=== PATIENT | female | born 1945 | race Caucasian/White ===

== ENCOUNTER 2022-05-04 15:43 | Outpatient (CLI) | payer MEDICARE, OTHER, SELFPAY ==
--- NOTE | ~2022-05-04 | CT_ITS ---
EXAMINATION: CT lung screening DATE: 05/04/2022 16:11 INDICATION: Lung cancer screening. History of tobacco dependence. TECHNIQUE: Computed tomography (CT) of the chest was performed without intravenous contrast. The dose -length product was 73.14 mGy-cm. COMPARISON: None FINDINGS: No significant pleural or pericardial effusions. No thoracic lymphadenopathy. There is athe rosclerosis of the aorta and coronary arteries. Heart size is normal. There is emphysema. No endobron chial lesions. There are a few small 1-2 mm nodules which are not clearly calcified. No focal airspac e consolidation. No pneumothorax. There is dependent atelectasis. There are mild wedge compression de formities of the lower thoracic spine, likely chronic. IMPRESSION: 1. Lung-RADS category 2: Benign appearance or behavior. Continue annual screening with noncontrast lo w-dose chest CT in 12 months. Reviewed, dictated and finalized at location B. IMPRESSION: 1. Lung-RADS category 2: Benign appearance or behavior. Continue annual screeni ng with noncontrast low-dose chest CT in 12 months.
== END 2022-05-04 15:44 | disposition home or self-care (01) ==
PROVIDERS: PCP Family Medicine; Visit Provider Physician Assistant
DX: Z12.2 Encounter for screening for malignant neoplasm of respiratory organs (principal); Z87.891 Personal history of nicotine dependence
CPT/HCPCS: 71271

== ENCOUNTER 2022-05-25 08:07 | Outpatient (CLI) | payer MEDICARE, OTHER, SELFPAY ==
--- NOTE | ~2022-05-25 | XR_ITS ---
EXAMINATION: XR abdomen obstructive series DATE: 05/25/2022 08:40 INDICATION: Left upper quadrant pain TECHNIQUE: Upright and supine views of the abdomen were obtained. COMPARISON: None. FINDINGS: A large volume of colonic stool is present. The visualized lung bases are clear. The bowel gas pattern is normal. There is moderate osteoarthritis of the hips. Calcified atherosclerosis is not ed. There is dextrocurvature of the lumbar spine. IMPRESSION: 1. Constipation. Reviewed, dictated and finalized at location B. IMPRESSION: 1. Constipation.
== END 2022-05-25 08:08 | disposition home or self-care (01) ==
PROVIDERS: PCP Family Medicine; Visit Provider Family Medicine
DX: R10.12 Left upper quadrant pain (principal); K59.00 Constipation, unspecified
CPT/HCPCS: 74019

== ENCOUNTER 2023-05-05 12:36 | Outpatient (CLI) | payer MEDICARE, SELFPAY ==
--- NOTE | ~2023-05-05 | CT_ITS ---
EXAMINATION: CT lung screening DATE: 05/05/2023 13:11 INDICATION: Personal history of nicotine dependence, prior smoker with 50 pack year history TECHNIQUE: Computed tomography (CT) of the chest was performed without intravenous contrast. The dose -length product (DLP) was 81.83 mGy-cm. Automated exposure control and iterative reconstruction techn ique were employed. COMPARISON: 05/04/2022 FINDINGS: There is moderate to severe emphysema. Again seen are scattered, stable 1 to 2 mm pulmonary nodules. There is mild atelectasis of the lower lobes. No pleural effusion or pneumothorax. No patho logically enlarged thoracic lymph nodes are identified. The heart size is normal. There is calcified coronary artery atherosclerosis. There is moderate thoracic spondylosis. IMPRESSION: 1. Lung-RADS category 2: Benign appearance or behavior. Continue annual screening with noncontrast lo w-dose chest CT in 12 months. Reviewed, dictated and finalized at location L. IMPRESSION: 1. Lung-RADS category 2: Benign appearance or behavior. Continue annual screeni ng with noncontrast low-dose chest CT in 12 months.
== END 2023-05-05 12:37 | disposition home or self-care (01) ==
PROVIDERS: PCP Family Medicine; Visit Provider Physician Assistant
DX: Z12.2 Encounter for screening for malignant neoplasm of respiratory organs (principal); Z87.891 Personal history of nicotine dependence
CPT/HCPCS: 71271

== ENCOUNTER 2024-04-18 12:04 | Outpatient (CLI) | payer MEDICARE, SELFPAY ==
--- NOTE | ~2024-04-18 | DEXA_ITS ---
Bone Density Report Name: GABBY ROQUE Age: 78 Sex: Female Ethnicity: White Date of : 1945 Indication: postmenopausal; screening for osteoporosis; parental hip fracture; height loss; Referring Provider: CHRISTIANO PAZ Study: Bone densitometry was performed. Exam Date: April 18, 2024 Accession number: [id number] Bone Density: Region BMD T-score Z-score Classification AP Spine(L1, L2) 0.944 -0.3 2.0 Normal Femoral Neck (Left) 0.588 -2.3 -0.2 Osteopenia Total Hip (Left) 0.801 -1.2 0.7 Osteopenia Femoral Neck (Right) 0.727 -1.1 1.1 Osteopenia Total Hip (Right) 0.779 -1.3 0.5 Osteopenia Total Hip Mean 0.790 -1.3 0.6 Osteopenia World Health Organization criteria for BMD impression classify patients as: Normal (T-score at or above -1.0), Osteopenia (T-score between -1.0 and -2.5), or Osteoporosis (T-score at or below -2.5). 10-year Fracture Risk: FRAX not reported because: Treated for osteoporosis Clinical Information Provided by Patient: Parent has had a hip fracture Is being treated for osteoporosis Has used the following medications: Fosamax (i.e. alendronate), Vitamin D Patient maximum height was 67 Menopause Age: 54 No regular weight bearing exercise Drinks caffeinated beverages Onset of menses at age 15 Number of children 0 Impression: The patient has low bone mass, based on the Left Femoral Neck T-score. The patient has risk factors, including: parental hip fracture. Discussion: It is important to ask patients whether they are taking their medications and to encourage continued and appropriate compliance with their osteoporosis therapies to reduce fracture risk. It is also important to review their risk factors and encourage appropriate calcium and vitamin D intakes, exercise, fall prevention and other lifestyle measures. Follow-Up: Consider a repeat BMD and Vertebral Fracture Assessment (VFA) exam in 2 years or sooner if medically necessary, to reassess this patient's status. Reported by: ATTILA on 04/18/2024 12:42:00 PM. Reviewed, dictated and finalized at location AMiguelina WHEATLEY
== END 2024-04-18 12:05 | disposition home or self-care (01) ==
LOC: ANHIMG 12:05
PROVIDERS: PCP Family Medicine; Visit Provider Physician Assistant Medical
DX: M85.89 Other specified disorders of bone density and structure, multiple sites (principal); Z78.0 Asymptomatic menopausal state; Z13.820 Encounter for screening for osteoporosis
CPT/HCPCS: 77080

== ENCOUNTER 2024-05-07 10:08 | Outpatient (CLI) | payer MEDICARE, SELFPAY ==
--- NOTE | ~2024-05-07 | CT_ITS ---
EXAMINATION:CT lung screening DATE: 05/07/2024 10:26 INDICATION: Personal history of nicotine dependence. Smoker who quit 2 years ago with 50 pack year hi story. TECHNIQUE: Computed tomography (CT) of the chest was performed without intravenous contrast. Automate d exposure control and iterative reconstruction technique were employed. The dose-length product (DLP ) was 81.72 mGy-cm. COMPARISON: Chest CT 05/05/2023 FINDINGS: There is severe emphysema. There is mild scarring filling apices. There is mild atelectasis bilaterally. There are bilateral posterior diaphragmatic hernias containing fat. Calcified nodules i n lingula are consistent with old granulomatous disease. There is a cluster nodules measuring up to 4 mm in left lower lobe that are new. No pleural effusion. The heart size is normal. There are coronar y artery calcifications. No pericardial effusion. There is ectasia of ascending aorta measuring 4.1 c m. There is mild chronic anterior wedging of multiple thoracic vertebral bodies. There is severe thor acic spondylosis. IMPRESSION: 1. Lung-RADS category 3: Probably benign. Further evaluation is recommended with noncontrast low-dose chest CT in 6 months. Reviewed, dictated and finalized at location A. IMPRESSION: 1. Lung-RADS category 3: Probably benign. Further evaluation is recommended wit h noncontrast low-dose chest CT in 6 months.
== END 2024-05-07 10:09 | disposition home or self-care (01) ==
LOC: ANHIMG 10:09
PROVIDERS: PCP Family Medicine; Visit Provider Physician Assistant
DX: Z12.2 Encounter for screening for malignant neoplasm of respiratory organs (principal); Z87.891 Personal history of nicotine dependence; R91.8 Other nonspecific abnormal finding of lung field
CPT/HCPCS: 71271

== ENCOUNTER 2024-10-24 13:58 | Outpatient (CLI) | payer MEDICARE, SELFPAY ==
--- NOTE | ~2024-10-24 | CT_ITS ---
EXAMINATION: CT diagnostic chest wo con DATE: 10/24/2024 14:16 INDICATION: R91.1 - Solitary pulmonary nodule TECHNIQUE: Computed tomography (CT) of the chest was performed without intravenous contrast. Addition al 3D reconstructions utilizing coronal maximum intensity projection (MIP) were performed. Automated exposure control and iterative reconstruction technique were employed. The dose-length product was 66 .49 mGy-cm. COMPARISON: 05/07/2024 FINDINGS: Severe emphysema with mild biapical pleural-parenchymal scarring. Small clusters of ulnar nodules danette suring up to 5 mm with tree-in-bud pattern, new from the anterior segment of the right upper lobe, sl ightly increased in size and number in the anterior segment of the left upper lobe and decreased in s ize in the inferior lingula. The distribution involving major favors an infectious/inflammatory etiol ogy. No pulmonary edema or pleural effusion. Again seen are small fat-containing bilateral posterior diaphragmatic hernias. Heart size normal. Atherosclerotic coronary artery calcifications and possibly stenting along the right coronary artery. No pericardial effusion. 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 No pathologically enlarged thorac ic lymphadenopathy. Visualized upper abdomen is unremarkable. Severe thoracic spondylosis with chroni c mild anterior wedging of multiple thoracic vertebral bodies. IMPRESSION: 1. Lung-RADS category 3: Probably benign. Further evaluation is recommended with noncontrast low-dose chest CT in 6 months. Reviewed, dictated and finalized at location A. OR DATA QUALITY ANALYST IMPRESSION: 1. Lung-RADS category 3: Probably benign. Further evaluation is recommended wit h noncontrast low-dose chest CT in 6 months.
--- OUTSIDE RECORDS SUMMARY | 2024-10-24 14:56 | XMS_ITS | Referral Summary ---
Author Organization [facility] [place] [facility] [place] [address] Address [address] [place] [address] Care Team Providers Care Electronic Lab Technician Name Role Phone Natasha Caldwell MD Primary Care Provider Allergies No known active allergies Medications aspirin 81 mg tablet take 2 tablet by oral route every day 60 6 02/16/2013 Active alendronate (FOSAMAX) 70 mg tablet Take 1 tablet (70 mg total) by mouth every 7 days Take in the morning with a full glass of water, on an empty stomach, and do not take anything else by mouth or lie down for the next 30 min. Active carvediloL (COREG) 3.125 mg tablet TAKE 1 TABLET BY MOUTH TWO TIMES A DAY WITH MEALS 180 tablet 1 05/07/2024 Active cholecalciferol (Vitamin D3) 2000 unit tablet 10,000 daily Active losartan (COZAAR) 25 mg tablet Take 1 tablet (25 mg total) by mouth daily 90 tablet 6 05/23/2024 Active buPROPion SR (WELLBUTRIN SR) 150 mg 12 hr tablet TAKE 1 TABLET BY MOUTH TWO TIMES A DAY 60 tablet 10 06/11/2024 Active rosuvastatin (CRESTOR) 40 mg tablet TAKE 1 TABLET BY MOUTH EVERY DAY 90 tablet 2 07/30/2024 Active Active Problems Problem Noted Date Diagnosed Date Atherosclerosis of coronary artery 06/21/2014 Overview (12/23/2016): Coronary atherosclerosis Social History Tobacco Use Types Packs/Day Years Used Date Smoking Tobacco: Former Cigarettes Q uit: 07/20/2022 Smokeless Tobacco: Never Alcohol Use Standard Drinks/Week Comments No 0 (1 standard drink = 0.6 oz pur e alcohol) Comments Unknown Sex and Gender Information Value Date Recorded Sex Assigned at Not on file 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 Gender Identity Not on file Sexual Orientation Not on file Last Filed Vital Signs Vital Sign Reading Time Taken Comments Blood Pressure 98/70 05/23/2024 10:46 AM CDT Pulse 71 05/23/2024 10:46 AM CDT Temperature - - Respiratory Rate 12 04/13/2017 8:25 AM CDT Oxygen Saturation 95% 05/23/2024 10:46 AM CDT Inhaled Oxygen Concentration - - Weight 68.8 kg (151 lb 9.6 oz) 05/23/2024 10:46 AM CDT Height 170.2 cm (5' 7 ) 05/23/2024 10:46 AM CDT Body Mass Index 23.74 05/23/2024 10:46 AM CDT Plan of Treatment Not on file Insurance MEDICARE [facility] MEDICARE [facility] Care Teams Electronic Lab Technician Relationship Specialty Start Date End Date Natasha Caldwell MD PCP - General Family Medicine 06/15/21
--- OUTSIDE RECORDS SUMMARY | 2024-10-24 14:56 | XMS_ITS | Continuity of Care Document ---
Author Organization [facility] Address [id number] [place] [address] [place] [address] Phone Care Team Providers Care Supervisor Feed Mill Name Role Phone Chico Patiño DO Unavailable Unavailable Advance Directives Directive Yes / No Effective Date File Name No Information Encounters Encounter Description Practice Location Reason(s) For Visit Diagnoses Date Provider Providers Copied on Encounter [facility], [address], [place], [place], [id number], [place] tel:[phone] [facility] No Information Haroon Wolf. [address] [place], [address], [place]. tel:[phone] Family History Family Member Type Diagnosis Age At Onset No Information Payers Payer name Insurance type Covered green party ID Authoriza tion(s) No Information Social History Type Description Quantity Date Captured Comments Sex Female Smoking Status No Information Chief Complaint And Reason For Visit No Information Reason For Referral Reason For Referral No Information History Of Present Illness Encounter Date Complaint History Of Prese nt Illness No Information Functional Status Date Functional Assessmen t No Information Instructions Date Instruction Additional Infor mation No Information Assessments Type Assessment Date No Information Patient Care Teams Name Effective Dates (start - stop) Status Members No Information
--- OUTSIDE RECORDS SUMMARY | 2024-10-24 14:56 | XMS_ITS | Clinical Summary ---
Author Organization [facility] [place] [address] Address [address] [place] [address] Care Team Providers Care Estimating Engineer Name Role Phone Natasha Caldwell MD Primary Care Provider [phone] Allergies No known active allergies Medications aspirin [...] coronary artery 06/21/2014 Overview (12/23/2016): Coronary atherosclerosis Surgical History Surgery Date Site/Laterality Comments TONSILLECTOMY Tonsillectomy Medical History Medical History Date Comments Cardiovascular disease Coronary Artery Disease Hx Other Medical 2013 Myocardial Infa rction Inf STEMI Hx Other Medical HLP Family History Medical History Relation Name Comments Coronary artery disease Brother 2 Jairo nary artery disease; Other Father HTN,CVA,Colon C ancer, [place]; Cause of : HTN,CVA,Colon Cancer, [place] Coronary artery disease Mother Jairo nary artery disease; Cause of : Coronary artery disease Relation Name Status Comments Brother 1 Alive Brother 2 Father (Age 84) Mother (Age 85) Social History Tobacco Use Types Packs/Day Years Used Date Smoking Tobacco: Former Cigarettes Q uit: 07/20/2022 Smokeless Tobacco: Never Alcohol Use Standard Drinks/Week Comments No 0 (1 standard drink = 0.6 oz pur e alcohol) Comments Unknown Sex and Gender Information Value Date Recorded Sex Assigned at Not on file 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 Gender Identity Not on file Sexual Orientation Not on file Obstetrics History Last Filed Vital Signs Vital Sign Reading [...] 05/23/2024 10:46 AM CDT Plan of Treatment Health Maintenance Due Date Last Done Comments Depression Screening 1945 Fall Risk Assessment 1945 Hepatitis C Screening 1945 Osteoporosis Screening-Bone Density Scan 1945 Hepatitis B Screening 1965 Zoster Vaccine (1 of 2) 1997 Well Visit 65+ 2012 DTaP/Tdap/Td Vaccine (1 - Tdap) 05/25/2017 7 Pneumococcal vaccine 65+ (2 of 2 - PCV) 05/24/2018 0 05/24/2017 Influenza Vaccine (#1) 2024 Insurance MEDICARE [facility] MEDICARE [facility] Care Teams Estimating Engineer Relationship Specialty Start Date End Date Natasha Caldwell MD PCP - General Family Medicine 06/15/21
== END 2024-10-24 13:59 | disposition home or self-care (01) ==
LOC: ANHIMG 14:00
PROVIDERS: PCP Family Medicine; Visit Provider Physician Assistant
DX: R91.1 Solitary pulmonary nodule (principal)
CPT/HCPCS: 71250

== ENCOUNTER 2024-10-31 12:35 | Emergency (ER) | payer MEDICARE, SELFPAY ==
--- NOTE | ~2024-10-31 | XR_ITS ---
EXAMINATION: XR wrist LT min 3V DATE: 10/31/2024 13:02 INDICATION: Left wrist pain post fall TECHNIQUE: Posteroanterior, ulnar deviation, oblique, and lateral views of the left wrist were obtain ed. COMPARISON: none FINDINGS: Transverse metaphyseal fracture of the distal left radius. There is one cortical width dorsal displac ement and dorsal angulation resulting in 18 degrees dorsal tilt of the distal articular surface. Ther e is comminution with cortical buckling along the dorsal side of the fracture. No other fractures fortunato ntified. There are increased scapholunate and lunar capitate angles suggesting possible disruption of the scapholunate ligament. 2 mm ulnar minus variance. 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 Dorsal angulation and minimal dorsal displacement of an extra articular fracture of the distal lef t radius with buckling and mild comminution along the dorsal cortex. 2. Increased scapholunate and lunotriquetral angles suggesting scapholunate ligament insufficiency/te ar and secondary dorsal intercalated segment instability (DISI). Reviewed, dictated and finalized at location A. TELLER IMPRESSION: 1. Dorsal angulation and minimal dorsal displacement of an extra articular frac ture of the distal left radius with buckling and mild comminution along the adams tommy cortex. 2. Increased scapholunate and lunotriquetral angles suggesting scapholunate lig ament insufficiency/tear and secondary dorsal intercalated segment instability (DISI).
--- NOTE | ~2024-10-31 | XR_ITS ---
EXAMINATION: XR wrist LT 2V DATE: 10/31/2024 15:28 INDICATION: Postreduction left wrist fracture TECHNIQUE: Posteroanterior, ulnar deviation, oblique, and lateral views of the left wrist were obtain ed. COMPARISON: none FINDINGS: Interval reduction to near-anatomic alignment of the previously dorsally angulated and mildly comminu reji extra articular fracture of the distal left radius. Again seen is increased scapholunate and luno capitate angles consistent with dorsal intercalated segment instability (DISI) and suspicious for sca pholunate ligament tear/insufficiency. Splinting material along the volar aspect of the wrist. IMPRESSION: 1. Successful reduction to near-anatomic alignment of the previous noted mildly comminuted extra-raquel cular fracture of the distal left radius. 2. Persistent increased scapholunate and lunotriquetral angles suspicious for scapholunate ligament i nsufficiency/tear and secondary dorsal intercalated segment instability (DISI). Reviewed, dictated and finalized at location A. HEAD COUNSELOR IMPRESSION: 1. Successful reduction to near-anatomic alignment of the previous noted mildly comminuted extra-articular fracture of the distal left radius. 2. Persistent increased scapholunate and lunotriquetral angles suspicious for s capholunate ligament insufficiency/tear and secondary dorsal intercalated segme nt instability (DISI).
--- OUTSIDE RECORDS SUMMARY | 2024-10-31 12:37 | XMS_ITS | Referral Summary ---
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
--- OUTSIDE RECORDS SUMMARY | 2024-10-31 12:37 | XMS_ITS | Continuity of Care Document ---
Author Organization [facility] Address [address] [place] [address] [place] [address] Phone Care Team Providers Care Manager Of Organizational Development Name Role Phone Chico Patiño DO Unavailable Unavailable Advance Directives Directive Yes / No Effective Date File Name No Information Encounters Encounter Description Practice Location Reason(s) For Visit Diagnoses Date Provider Providers Copied on Encounter [facility], [address], [place], [place], [id number], [place] tel:[phone] [facility] No Information Haroon Wolf. [address] [place], [address], [place]. tel:[phone] Family History Family Member Type Diagnosis Age At Onset No Information Payers Payer name Insurance type Covered constitution party ID Authoriza tion(s) No Information Social [...]
--- OUTSIDE RECORDS SUMMARY | 2024-10-31 12:37 | XMS_ITS | Clinical Summary ---
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
[2024-10-31 13:07] VITALS: BP 147/85; PULSE 64; RESP 20; TEMP 36.6; O2SAT 95
--- NOTE | 2024-10-31 13:08 | ED.FALL ---
HPI - Fall General Chief Complaint: Fall <ISRAEL Coyne Last Filed: 10/31/24 18:57> Stated Complaint: glf, L wrist pain/swelling <ISRAEL Coyne Last Filed: 10/31/24 18:57> Time Seen by Provider: 10/31/24 13:08 <ISRAEL Coyne Last Filed: 10/31/24 18:57> Source: patient <ISRAEL Coyne Last Filed: 10/31/24 18:57> Mode of arrival: EMS <ISRAEL Coyne Last Filed: 10/31/24 18:57> Limitations: no limitations <ISRAEL Coyne Last Filed: 10/31/24 18:57> History of Present Illness HPI Narrative: Patient is a 79 y/o female who presents to the ED via EMS with c/o L wrist pain. Patient reports she tripped over a suitcase just prior to arrival and fell. Attempted to catch herself with her left arm. Complains of pain to her left wrist. Denies any other injuries. Denies head injury or LOC. Denies numbness. She is not on any anticoagulation. Rates pain 5/10. <ISRAEL Coyne Last Filed: 10/31/24 18:57> Related Data Home Medications: Home Medications ?Medication ?Instructions ?Recorded ?Confirmed ?Last Taken ?Type aspirin 81 mg tablet,delayed 81 mg PO DAILY 11/19/19 10/17/24 Unknown History release (Adult Low Dose Aspirin) carvedilol 3.125 mg tablet 3.125 mg PO Q12H 11/19/19 10/17/24 Unknown History losartan 50 mg tablet 50 mg PO DAILY 11/19/19 10/17/24 Unknown History rosuvastatin 40 mg tablet 40 mg PO DAILY 04/03/21 10/17/24 Unknown History bupropion HCl 150 mg tablet,12 hr 150 mg PO BID 11/04/21 10/17/24 Unknown History sustained-release <ISRAEL Coyne Last Filed: 10/31/24 18:57> Allergies/Adverse Reactions: Allergies Allergy/AdvReac Type Severity Reaction Status Date / Time No Known Allergies Allergy Verified 10/15/24 10:22 <Orquidea Griffin PA-C - Last Filed: 10/31/24 18:57> Review of Systems Review of Systems: All systems reviewed & are unremarkable except as noted in HPI. <Orquidea Griffin PA-C - Last Filed: 10/31/24 18:57> All systems reviewed & are unremarkable except as noted in HPI and below <Orquidea Griffin PA-C - Last Filed: 10/31/24 18:57> [facility] Past Medical History Medical History: Medical History Pulmonary nodule CAD (coronary artery disease) Chronic renal insufficiency, stage III (moderate) History of tobacco abuse Screening declined by patient Hyperlipidemia Smoker unmotivated to quit Osteoporosis Hypertension Cyst of face Myocardial infarct, old <Orquidea Griffin PA-C - Last Filed: 10/31/24 18:57> Surgical History Surgical History: Surgical History History of tonsillectomy Stented coronary artery <Orquidea Griffin PA-C - Last Filed: 10/31/24 18:57> Family History Family History: Family History Father Hypertension Carcinoma of colon Mother Family history of coronary artery disease Sibling Family history of coronary artery disease Grandparent Cerebrovascular accident <Orquidea Griffin PA-C - Last Filed: 10/31/24 18:57> Social History Social History: Social History Social History: Lives alone, (2021), no family in area. Next of kin: Taylor Shrestha ([place]) [phone] DNR Smoking packs per day: 1 Smoking cigarettes per day: 20.0 Years smoked: 50 Smoking pack-years: 50.00 Smoking status: Former smoker (3-4 ciga a day. Quit 07/2022) Tobacco type: cigarettes Second hand tobacco smoke exposure: No Smoking end date: 07/20/22 Alcohol intake: never Substance use: never Substance use type: does not use Living arrangements: alone Occupation/Education: retired Gender identity (if verbalized by the patient): Female Spiritual care concerns: No Agree to blood products: Yes <ISRAEL Coyne Last Filed: 10/31/24 18:57> Exam Narrative: GENERAL: Elderly, thin, non-toxic, in no acute distress. HEAD: Normocephalic, atraumatic. RESPIRATORY: Airway patent, respirations nonlabored. CARDIOVASCULAR: Regular rate and rhythm. Radial pulses intact and easily palpable. MUSCULOSKELETAL: No gross deformities. TTP over L distal radius region with swelling and mild deformity noted. Sensation intact. Strong catalytic case operator strength. Able to wiggle fingers. SKIN: Warm, dry, normal color. NEURO: A&O X3. Speech clear. No ataxic movements. No focal deficits. PSYCHIATRIC: Appropriate mood and affect. Normal interaction. <ISRAEL Coyne Last Filed: 10/31/24 18:57> Course Vital Signs Vital signs: Vital Signs Temperature 97.8 F 10/31/24 13:07 Pulse Rate 64 10/31/24 13:07 Respiratory Rate 20 10/31/24 13:07 Blood Pressure 147/85 H 10/31/24 13:07 Pulse Oximetry 95 10/31/24 13:07 Oxygen Delivery Room Air 10/31/24 13:07 Temperature 98.1 F 10/31/24 15:50 Pulse Rate 57 L 10/31/24 15:50 Respiratory Rate 20 10/31/24 15:50 Blood Pressure 134/70 10/31/24 15:50 Pulse Oximetry 99 10/31/24 15:50 Oxygen Delivery Room Air 10/31/24 15:50 <Orquidea Griffin PA-C - Last Filed: 10/31/24 18:57> Vital Signs Temperature 97.8 F 10/31/24 13:07 Pulse Rate 64 10/31/24 13:07 Respiratory Rate 20 10/31/24 13:07 Blood Pressure 147/85 H 10/31/24 13:07 Pulse Oximetry 95 10/31/24 13:07 Oxygen Delivery Room Air 10/31/24 13:07 Temperature 98.1 F 10/31/24 15:50 Pulse Rate 57 L 10/31/24 15:50 Respiratory Rate 20 10/31/24 15:50 Blood Pressure 134/70 10/31/24 15:50 Pulse Oximetry 99 10/31/24 15:50 Oxygen Delivery Room Air 10/31/24 15:50 <Adrián Morales III, DO - Last Filed: 10/31/24 18:58> Procedures Orthopedic Fracture Reduction Fracture #1: Fracture Reduction date: 10/31/24 <Orquidea Griffin PA-C - Last Filed: 10/31/24 18:57> Fracture Reduction time: 15:10 <Orquidea Griffin PA-C - Last Filed: 10/31/24 18:57> Time Out Performed: Yes <Orquidea Griffin PA-C - Last Filed: 10/31/24 18:57> Side: left <ISRAEL Coyne Last Filed: 10/31/24 18:57> Fracture Reduction Location: radius <ISRAEL Coyne Last Filed: 10/31/24 18:57> Analgesia: procedural sedation <ISRAEL Coyne Last Filed: 10/31/24 18:57> Pre-Procedure Neuro Vascular Exam: normal <ISRAEL Coyne Last Filed: 10/31/24 18:57> Technique: direct manipulation and traction/counter-traction <ISRAEL Coyne Last Filed: 10/31/24 18:57> Post Reduction X-rays Demonstrate: anatomical reduction <ISRAEL Coyne Last Filed: 10/31/24 18:57> Post-reduction neuro exam: intact and no change <ISRAEL Coyne Last Filed: 10/31/24 18:57> Post-reduction vascular exam: intact and no change <ISRAEL Coyne Last Filed: 10/31/24 18:57> Splint Applied: Yes <ISRAEL Coyne Last Filed: 10/31/24 18:57> Patient Tolerated Procedure: well and no complications <ISRAEL Coyne Last Filed: 10/31/24 18:57> Orthopedic Splinting/Casting Injury #1: Splinting/Casting Date: 10/31/24 <Orquidea Griffin PA-C - Last Filed: 10/31/24 18:57> Splinting/Casting Time: 15:15 <ISRAEL Coyne Last Filed: 10/31/24 18:57> Side: left <Orquidea Griffin PA-C - Last Filed: 10/31/24 18:57> Upper Extremity Injury Location: wrist <ISRAEL Coyne Last Filed: 10/31/24 18:57> Upper Extremity Immobilizer: volar splint <ISRAEL Coyne Last Filed: 10/31/24 18:57> Splint: customized in ED <ISRAEL Coyne Last Filed: 10/31/24 18:57> Pre-Procedure Neuro Vascular Exam: normal <ISRAEL Coyne Last Filed: 10/31/24 18:57> Post-Procedure Neuro Vascular Exam: normal <ISRAEL Coyne Last Filed: 10/31/24 18:57> Other Orthopedic Equipment: other (sling) <ISRAEL Coyne Last Filed: 10/31/24 18:57> Procedural Sedation Procedural Sedation #1: Procedural Sedation Date: 10/31/24 <Adrián Morales III DO - Last Filed: 10/31/24 18:58> Presedation Evaluation: Pt awake and alert and capable of making informed decision. <Adrián Morales III, DO - Last Filed: 10/31/24 18:58> Procedure: closed reduction of right wrist <Adrián Morales III DO - Last Filed: 10/31/24 18:58> Provider Performed: sedation only <Adrián Isaac Morales III, DO - Last Filed: 10/31/24 18:58> Informed Consent Obtained: yes <Adrián Isaac Morales III, DO - Last Filed: 10/31/24 18:58> Equipment in Room: bag and mask, capnography, quality assurance monitor, crash cart, oxygen, pulse oximeter and suction <Adrián Isaca Morales III, DO - Last Filed: 10/31/24 18:58> Plan for Sedation: moderate sedation <Adrián Isaac Morales III, DO - Last Filed: 10/31/24 18:58> ASA Class: III <Adrián Isaac Morales III, DO - Last Filed: 10/31/24 18:58> Mallampati Classification: class III <Adrián Isaac Morales III, DO - Last Filed: 10/31/24 18:58> NPO Status: last solid food (hours ago) (6) <Adrián Isaac Morales III, DO - Last Filed: 10/31/24 18:58> Explanation to Patient/Family: Risk/Benefits/Alternatives and Pt/Family agreed with plan <Adrián Isaac Morales III, DO - Last Filed: 10/31/24 18:58> Pt. Educated on Procedural Sedation: Yes <Adrián Isaac Morales III, DO - Last Filed: 10/31/24 18:58> Preparation: quality assurance monitor applied, pulse oximeter, capnometry used, supplemental O2 applied, suction/airway equipment at bedside and IV secured <Adrián Isaac Morales III, DO - Last Filed: 10/31/24 18:58> IV Etomidate dose (mg): 10 <Adrián Isaac Morales III, DO - Last Filed: 10/31/24 18:58> Patient Tolerated Procedure: well and no complications <Adrián Isaac Morales III, DO - Last Filed: 10/31/24 18:58> Additional Comments: initial administration of about 4-5 mg of etomidate infiltrated. Pt had no sedation. Another IV established and flushed well. etomidate 10 mg IVP given and adequate sedation achieved. <Adrián Isaac Morales III, DO - Last Filed: 10/31/24 18:58> MDM - Fall MDM Narrative Medical decision making narrative: Patient presented to ED s/p ground level mechanical fall, injury to L wrist. No other injuries. No HI/LOC. VSS. In NAD. Patient's injury is consistent with musculoskeletal etiology. No signs of neurologic or vascular compromise on physical examination. Compartments are soft without signs of compartment syndrome. XR showing comminuted/angulated distal radius fx. Pain is consistent with exam and injury. Discussed case with Dr. Anthony, orthopedics, who reviewed images himself. Recommended reduction of fracture. Will follow-up in office. Discussed this with patient. She is agreeable to reduction. Will perform procedural sedation with Etomidate. Assisted by Dr. Morales. See procedure notes. Patient tolerated this well. Remains neurovascularly intact. Patient placed in short arm volar splint. Post reduction film showing improvement/near anatomical reduction of displacement. Patient given sling for support. Will be discharged to follow up with orthopedics. Pain medication sent to pharmacy. Prior to discharge, patient was ambulated by ED music sound light technician with a walking pulse ox. She was reported to have dropped her oxygen level down into the mid 80s. I was then notified about this. Patient's O2 sat recovered very quickly. Patient did not require any supplemental oxygen. I went to bedside to discuss this with patient. She denies any SOB. Denies recent cough or cold sx's. Denies CP. Patient states she feels the same as she always does. Denies feeling short of breath. Denied feeling SOB while walking with music sound light technician. States again she feels at her baseline. Has hx of COPD, follows with Dr. Smith and Opal Aragon [facility] [employer] and last saw them at the end of September. States they have never mentioned her needing home O2. She states she does not want or feel she needs further work up for this right now. Does not want to be admitted to the hospital. Wants to go home. States she feels comfortable going home. Again denies SOB. States she walked around [facility] all morning doing her shopping and did not feel short of breath then. She is alert oriented x4 and capable making her own decisions at this time. Discussed strict return precautions and recommended close f/u with orthopedics/pulmonary for further evaluation. Patient voiced understanding. Discharged in stable condition. <Orquidea Griffin PA-C - Last Filed: 10/31/24 18:57> Medical Records Attestation: I reviewed the patient's medical records. <ISRAEL Coyne Last Filed: 10/31/24 18:57> Imaging Data Attestation: I personally reviewed and interpreted this imaging study as follows: <ISRAEL Coyne Last Filed: 10/31/24 18:57> Radiologist's impression: ITS Impressions Wrist X-Ray 10/31/24 13:11 IMPRESSION: 1. Dorsal angulation and minimal dorsal displacement of an extra articular fracture of the distal left radius with buckling and mild comminution along the dorsal cortex. 2. 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 Wrist X-Ray 10/31/24 15:29 IMPRESSION: 1. Successful reduction to near-anatomic alignment of the previous noted mildly comminuted extra-articular fracture of the distal left radius. 2. Persistent increased scapholunate and lunotriquetral angles suspicious for scapholunate ligament insufficiency/tear and secondary dorsal intercalated segment instability (DISI). <ISRAEL Coyne Last Filed: 10/31/24 18:57> Discharge Plan Discharge Clinical Impression: Fall from ground level Fracture of distal end of left radius Qualifiers: Encounter type: initial encounter Fracture type: closed Fracture morphology: Colles' Qualified Code(s): S52.532A - Colles' fracture of left radius, initial encounter for closed fracture <ISRAEL Coyne Last Filed: 10/31/24 18:57> Patient Disposition: Home, Self-Care <ISRAEL Coyne Last Filed: 10/31/24 18:57> Condition: Stable <ISRAEL Coyne Last Filed: 10/31/24 18:57> Instructions: Antibiotic Form, Wrist Fracture in Adults (ED), Splint Care (ED) <ISRAEL Coyne Last Filed: 10/31/24 18:57> Additional Instructions: Utilize Tylenol and ibuprofen as needed for pain. [place] as needed for more severe pain. Elevate arm as much as possible. Recommend frequent icing to wrist. Wear splint until seen by orthopedics. Utilize sling for comfort and support. Call orthopedic office to make appointment for further evaluation and management of fracture. Return to the ED if you experience worsening or severe pain, recurrent fall or injury, numbness, or any other symptoms of concern. <Orquidea Griffin PA-C - Last Filed: 10/31/24 18:57> Patient Language: Portuguese <Orquidea Griffin PA-C - Last Filed: 10/31/24 18:57> Prescriptions: New hydrocodone-acetaminophen 5-325 mg tablet 1 tablet PO Q6H PRN (Reason: pain) Qty: 15 0RF No Action aspirin [Adult Low Dose Aspirin] 81 mg tablet,delayed release (DR/EC) 81 mg PO DAILY carvedilol 3.125 mg tablet 3.125 mg PO Q12H Rx Instructions: must administer with a meal/food losartan 50 mg tablet 50 mg PO DAILY rosuvastatin 40 mg tablet 40 mg PO DAILY bupropion HCl 150 mg tablet sustained-release 12 hr 150 mg PO BID ergocalciferol (vitamin D2) [Vitamin D2] 1,250 mcg (50,000 unit) capsule 1,250 mcg PO WEEKLY Qty: 12 1RF alendronate 70 mg tablet 70 mg PO WEEKLY Qty: 12 3RF <Orquidea Griffin PA-C - Last Filed: 10/31/24 18:57> Follow-up/Referrals: Kamlesh Anthony MD [Physician] - (Natasha Newman MD [Primary Care Provider] - <Orquidea Griffin PA-C - Last Filed: 10/31/24 18:57> Time of Disposition: 14:33 <Orquidea Griffin PA-C - Last Filed: 10/31/24 18:57> 14:33 <Adrián Morales III, DO - Last Filed: 10/31/24 18:58>
--- OUTSIDE RECORDS SUMMARY | 2024-10-31 13:36 | XMS_ITS | Clinical Summary ---
Author Organization [facility] [address] Address [address] [place] [address] Care Team Providers Care Equipment Engineer Name Role Phone Natasha Caldwell MD Primary Care Provider [phone] Allergies No known active allergies Medications aspirin [...] artery disease; Other Father HTN,CVA,Colon C ancer, [place]; Cause of : HTN,CVA,Colon Cancer, [place] Coronary artery disease Mother Jairo nary artery [...] on file Legal Sex Female 2:50 AM OUTPATIENT PROGRAM COORDINATOR Gender Identity Not on file Sexual Orientation [...] 05/24/2017 Influenza Vaccine (#1) 2024 Insurance MEDICARE [facility]IC[facility] Care Teams Equipment Engineer Relationship Specialty Start Date End Date Natasha Caldwell MD PCP - General Family Medicine 06/15/21
--- OUTSIDE RECORDS SUMMARY | 2024-10-31 13:36 | XMS_ITS | Referral Summary ---
Author Organization [facility] [address] Address [address] [place] [address] Care Team Providers Care Inspector Wire Products Name Role Phone Natasha Caldwell MD Primary Care Provider [phone] Allergies No known active allergies Medications aspirin [...] on file Legal Sex Female 2:50 AM SUEDE BRUSHER Gender Identity Not on file Sexual Orientation [...] of Treatment Not on file Insurance [facility]ARE [facility] Care Teams Inspector Wire Products Relationship Specialty Start Date End Date Natasha Caldwell MD PCP - General Family Medicine 06/15/21
--- OUTSIDE RECORDS SUMMARY | 2024-10-31 13:36 | XMS_ITS | Continuity of Care Document ---
Author Organization [facility] Address [address] [address] [place] [address] Phone Care Team Providers Care Level Glass Forming Machine Operator Name Role Phone Chico Patiño DO Unavailable Unavailable Advance Directives Directive Yes / No Effective Date File Name No Information Encounters Encounter Description Practice Location Reason(s) For Visit Diagnoses Date Provider Providers Copied on Encounter [facility], [address], [place], [place], [id number], [place] tel:[phone] [facility] No Information Haroon Wolf. [address] [place], [address], [place]. tel:[phone] Family History Family Member Type Diagnosis Age [...]
[2024-10-31 15:05] VITALS: BP 147/71; PULSE 60; RESP 17; TEMP 36.9; O2SAT 97
[2024-10-31 15:07] VITALS: BP 142/81; PULSE 60; RESP 17; TEMP 36.8; O2SAT 97
[2024-10-31 15:10] VITALS: BP 123/70; PULSE 63; RESP 19; TEMP 37.1; O2SAT 99
[2024-10-31 15:25] VITALS: BP 124/88; PULSE 57; RESP 19; TEMP 36.7; O2SAT 96
[2024-10-31 15:50] VITALS: BP 134/70; PULSE 57; RESP 20; TEMP 36.7; O2SAT 99
--- NOTE | 2024-10-31 18:00 | PC.NURSE ---
patient was ambulated by the tech and spo2 dropped from 92 to 84%
== END 2024-10-31 18:58 | disposition home or self-care (01) ==
PROVIDERS: Emergency Provider Physician Assistant; PCP Family Medicine
DX: S52.532A Colles' fracture of left radius, initial encounter for closed fracture (principal); I25.10 Atherosclerotic heart disease of native coronary artery without angina pectoris; I12.9 Hypertensive chronic kidney disease with stage 1 through stage 4 chronic kidney disease, or unspecified chronic kidney disease; E78.5 Hyperlipidemia, unspecified; I25.2 Old myocardial infarction; N18.30 Chronic kidney disease, stage 3 unspecified; M81.0 Age-related osteoporosis without current pathological fracture; Z95.5 Presence of coronary angioplasty implant and graft; Z66 Do not resuscitate; Z79.82 Long term (current) use of aspirin; Z79.899 Other long term (current) drug therapy; W18.09XA Striking against other object with subsequent fall, initial encounter
CPT/HCPCS: 25600; 73100; 73110; 96374; 99285; A4565

== ENCOUNTER 2024-11-05 03:08 | Emergency (ER) | payer MEDICARE, OTHER, SELFPAY ==
--- NOTE | ~2024-11-05 | CT_ITS ---
CT Scan of the Chest without Contrast: Clinical Indication: Left rib pain, status post fall Technique: Contiguous sections were acquired throughout the chest without intravenous contrast. Dose reduction technique was used on this scan by utilizing automated exposure control and iterative recon struction technique. The dose-length product (DLP) was 178.45 mGy-cm. COMPARISON: 10/24/2024 Findings: There is no evidence of any significant mediastinal, hilar or axillary lymphadenopathy. There are ath erosclerotic calcifications of the aorta and coronary arteries. There is no evidence of pleural or pericardial effusion. There is advanced emphysema. No pulmonary nodule or consolidation seen. Images through the upper abdomen reveal no abnormalities. Impression: No rib fracture seen. Advanced emphysema. Reviewed, dictated and finalized at [facility]. FIRM RECEPTIONIST Impression: No rib fracture seen. Advanced emphysema.
--- NOTE | ~2024-11-05 | XR_ITS ---
Portable chest x-ray Comparison: 12/12/2012 Clinical History: Shortness of breath, left rib pain Findings: Lungs are clear, without focal consolidation or pleural effusion. Cardiomediastinal silho uette is stable. Bones and soft tissues are unremarkable. Impression: Clear lungs. Reviewed, dictated and finalized at location . CRIPTION CLERK LENSES Impression: Clear lungs.
[2024-11-05 03:04] VITALS: BP 151/95; PULSE 80; RESP 23; TEMP 36.9; O2SAT 95
[2024-11-05 03:10] VITALS: PULSE 80
[2024-11-05 03:14] VITALS: O2SAT 95
[2024-11-05 03:16] VITALS: O2SAT 96
[2024-11-05] MEDS: HYDROcodone/acetaminophen (*CRX) 5-325 MG TABLET 1 TAB PO (04:41)
--- NOTE | 2024-11-05 04:44 | PC.NURSE ---
geothermal hvac technician called nursing station and advised that she could not lay down for the CT. Nursing staff went down to CT to give patient oral pain medications that EDP ordered. Patient states I'm not in pain, I can't breath . Patient was able to lay back for CT. Upon patient returning to room nursing staff asked patient if she couldn't breath due to pain. Patient replied yes . Patient was asked if she would like pain medication that the EDP ordered. Patient replies I don't know why you didn't give it to me . Patient was educated that she told staff that she was not in pain and that she just could not breath. Patient states Well I am in pain now. Can I have the pain medication now? Patient was then given oral pain medication.
--- OUTSIDE RECORDS SUMMARY | 2024-11-05 04:50 | XMS_ITS | Clinical Summary ---
Author Organization [facility] [address] Address [address] [place] [address] Care Team Providers Care Shafting Worker Name Role Phone Natasha Caldwell MD Primary Care Provider [phone] Allergies No known active allergies Medications aspirin [...] artery disease; Other Father HTN,CVA,Colon C ancer, [place]; Cause of : HTN,CVA,Colon Cancer, [place] Coronary artery disease Mother Jairo nary artery [...] on file Legal Sex Female 2:50 AM SUPPLY CATALOGUER Gender Identity Not on file Sexual Orientation [...] 05/24/2017 Influenza Vaccine (#1) 2024 Insurance MEDICARE [facility] MEDICARE [facility] Care Teams Shafting Worker Relationship Specialty Start Date End Date Natasha Caldwell MD PCP - General Family Medicine 06/15/21
--- OUTSIDE RECORDS SUMMARY | 2024-11-05 04:50 | XMS_ITS | Referral Summary ---
Author Organization [facility] [address] Address [address] [place] [address] Care Team Providers Care Softwood Faller Name Role Phone Natasha Caldwell MD Primary Care Provider [phone] Allergies No known active allergies Medications aspirin [...] on file Legal Sex Female 2:50 AM PHILATELIC CONSULTANT Gender Identity Not on file Sexual Orientation [...] Not on file Insurance MEDICARE [facility] MEDICARE [facility] Care Teams Softwood Faller Relationship Specialty Start Date End Date Natasha Caldwell MD PCP - General Family Medicine 06/15/21
--- OUTSIDE RECORDS SUMMARY | 2024-11-05 04:50 | XMS_ITS | Continuity of Care Document ---
Author Organization [facility] Address [address] [place] [address] [place] [address] Phone Care Team Providers Care Etcher Apprentice Name Role Phone Chico Patiño DO Unavailable Unavailable Advance Directives Directive Yes / No Effective Date File Name No Information Encounters Encounter Description Practice Location Reason(s) For Visit Diagnoses Date Provider Providers Copied on Encounter [facility], [address], [place], [place], [id number], [place] tel:[phone] [facility] No Information Haroon Wolf. [address] [place], [address], [place]. tel:[phone] Family History Family Member Type Diagnosis Age At Onset No Information Payers Payer name Insurance type Covered republican ID Authoriza tion(s) No Information Social History [...]
[2024-11-05 05:09] VITALS: BP 148/81; PULSE 73; RESP 20; TEMP 36.7; O2SAT 97
--- NOTE | 2024-11-05 05:13 | ED_ITS ---
HPI - General Adult General Chief complaint: Shortness of Breath/Dyspnea Stated complaint: SOB, LEFT RIB PAIN, FALL LAST WEEK Time Seen by Provider: 11/05/24 03:22 History of Present Illness HPI narrative: This is a 79-year-old female presenting with left rib pain. She had a fall sustained a fractured wrist 5 days ago. The day after the fall she started to have pain in her left rib cage. It got progressively worse. She denies fevers chills shortness breath abdominal pain or any other injuries. Related Data Home Medications ?Medication ?Instructions ?Recorded ?Confirmed ?Last Taken ?Type aspirin 81 mg tablet,delayed 81 mg PO DAILY 11/19/19 10/17/24 Unknown History release (Adult Low Dose Aspirin) carvedilol 3.125 mg tablet 3.125 mg PO Q12H 11/19/19 10/17/24 Unknown History losartan 50 mg tablet 50 mg PO DAILY 11/19/19 10/17/24 Unknown History rosuvastatin 40 mg tablet 40 mg PO DAILY 04/03/21 10/17/24 Unknown History bupropion HCl 150 mg tablet,12 hr 150 mg PO BID 11/04/21 10/17/24 Unknown History sustained-release Allergies Allergy/AdvReac Type Severity Reaction Status Date / Time No Known Allergies Allergy Verified 11/05/24 03:10 [facility] Past Medical History Medical History Pulmonary nodule CAD (coronary artery disease) Chronic renal insufficiency, stage III (moderate) History of tobacco abuse Screening declined by patient Hyperlipidemia Smoker unmotivated to quit Osteoporosis Hypertension Cyst of face Myocardial infarct, old Surgical History Surgical History History of tonsillectomy Stented coronary artery Family History Family History Father Hypertension Carcinoma of colon Mother Family history of coronary artery disease Sibling Family history of coronary artery disease Grandparent Cerebrovascular accident Social History Social History Social History: Lives alone, (2021), no family in area. Next of kin: Taylorarely Shrestha ([place]) [phone] DNR Smoking packs per day: 1 Smoking cigarettes per day: 20.0 Years smoked: 50 Smoking pack-years: 50.00 Smoking status: Former smoker (3-4 ciga a day. Quit 07/2022) Tobacco type: cigarettes Second hand tobacco smoke exposure: No Smoking end date: 07/20/22 Alcohol intake: never Substance use: never Substance use type: does not use Living arrangements: alone Occupation/Education: retired Gender identity (if verbalized by the patient): Female Spiritual care concerns: No Agree to blood products: Yes Exam Narrative: APPEARANCE: No apparent distress. Head: atraumatic. EYES: EOMI, NOSE: Atraumatic NECK: Trachea midline RESPIRATORY: No increased rate of breathing, clear to auscultation CARDIOVASCULAR: RRR, ABDOMINAL: Non-distended MUSCULOSKELETAl: Tenderness palpation over the left rib cage, no crepitus NEURO: Alert. Moving 4/4 extremities SKIN:: Warm, dry. Normal color PSYCHIATRIC: Normal affect Course Vital Signs Vital signs: Vital Signs Temperature 98.4 F 11/05/24 03:04 Pulse Rate 80 11/05/24 03:04 Respiratory Rate 23 H 11/05/24 03:04 Blood Pressure 151/95 H 11/05/24 03:04 Pulse Oximetry 95 11/05/24 03:04 Oxygen Delivery Room Air 11/05/24 03:04 Temperature 98.1 F 11/05/24 05:09 Pulse Rate 73 11/05/24 05:09 Respiratory Rate 20 11/05/24 05:09 Blood Pressure 148/81 H 11/05/24 05:09 Pulse Oximetry 97 11/05/24 05:09 Oxygen Delivery Room Air 11/05/24 03:16 Medical Decision Making [facility] Narrative Medical decision making narrative: -Course: 79-year-old female presenting several days after a fall with left rib pain. Stat Rad Interpretation of CT negative for fracture. Suspect bruising from the fall. Patient will be discharged staff spirometry and pain control. Primary care follow-up return precautions given -DDX includes but is not limited to: Fractured rib, contusion, pneumonia Vital Signs Vital Signs: Vital Signs Temperature 98.4 F 11/05/24 03:04 Pulse Rate 80 11/05/24 03:04 Respiratory Rate 23 H 11/05/24 03:04 Blood Pressure 151/95 H 11/05/24 03:04 Pulse Oximetry 95 11/05/24 03:04 Oxygen Delivery Room Air 11/05/24 03:04 Temperature 98.1 F 11/05/24 05:09 Pulse Rate 73 11/05/24 05:09 Respiratory Rate 20 11/05/24 05:09 Blood Pressure 148/81 H 11/05/24 05:09 Pulse Oximetry 97 11/05/24 05:09 Oxygen Delivery Room Air 11/05/24 03:16 Discharge Plan Discharge Clinical Impression: Pain in rib Patient Disposition: Home, Self-Care Condition: Stable Instructions: Antibiotic Form, Rib Contusion (ED) Additional Instructions: Please use Tylenol and lidocaine patches for pain. Use the incentive spirometer 10 times per hour while awake. If you develop signs of pneumonia such as fevers, worsening shortness of breath or chest pain please return to the ED for re-evaluation. Patient Language: Kyrgyz Prescriptions: New lidocaine 5 % adhesive patch,medicated 1 patch topical DAILY Qty: 15 0RF Rx Instructions: leave on most painful area for up to 12 hrs No Action aspirin [Adult Low Dose Aspirin] 81 mg tablet,delayed release (DR/EC) 81 mg PO DAILY carvedilol 3.125 mg tablet 3.125 mg PO Q12H Rx Instructions: must administer with a meal/food losartan 50 mg tablet 50 mg PO DAILY rosuvastatin 40 mg tablet 40 mg PO DAILY bupropion HCl 150 mg tablet sustained-release 12 hr 150 mg PO BID hydrocodone-acetaminophen 5-325 mg tablet 1 tablet PO Q6H PRN (Reason: pain) Qty: 15 0RF ergocalciferol (vitamin D2) [Vitamin D2] 1,250 mcg (50,000 unit) capsule 1,250 mcg PO WEEKLY Qty: 12 1RF alendronate 70 mg tablet 70 mg PO WEEKLY Qty: 12 3RF Follow-up/Referrals: Natasha Caldwell MD [Primary Care Provider] -
[2024-11-05] MEDS: LIDOCAINE 5% PATCH 1 PATCH TRANSDERM (05:49)
== END 2024-11-05 06:01 | disposition home or self-care (01) ==
PROVIDERS: Emergency Provider Emergency Medicine; PCP Family Medicine
DX: R07.81 Pleurodynia (principal); R91.1 Solitary pulmonary nodule; I25.10 Atherosclerotic heart disease of native coronary artery without angina pectoris; I12.9 Hypertensive chronic kidney disease with stage 1 through stage 4 chronic kidney disease, or unspecified chronic kidney disease; N18.30 Chronic kidney disease, stage 3 unspecified; I25.2 Old myocardial infarction; Z87.891 Personal history of nicotine dependence
CPT/HCPCS: 71045; 71250; 99284; A9270

== ENCOUNTER 2025-04-11 13:37 | Outpatient (CLI) | payer MEDICARE, SELFPAY ==
--- NOTE | ~2025-04-11 | XR_ITS ---
CHEST RADIOGRAPH, PA AND LATERAL CLINICAL HISTORY: R07.9 - Chest pain, unspecified . COMPARISON: 11/05/2024 TECHNIQUE: PA and lateral views of the chest. FINDINGS The cardiomediastinal silhouette is unremarkable. The lungs are clear. IMPRESSION: No focal infiltrate or effusion. Reviewed, dictated and finalized at location A.
--- OUTSIDE RECORDS SUMMARY | 2025-04-11 13:48 | XMS_ITS | Continuity of Care Document ---
Author Organization [facility] Address [id number] [place] [address] [place] [address] Phone Care Team Providers Care Delicatessen Manager Name Role Phone Chico Patiño DO Unavailable Unavailable Advance Directives Directive Yes / No Effective Date File Name No Information Encounters Encounter Description Practice Location Reason(s) For Visit Diagnoses Date Provider Providers Copied on Encounter [facility], [address], [place], [place], [id number], [place] tel:[phone] [facility] No Information Haroon Wolf. [address] [place], [address], [place]. tel:[phone] Family History Family Member Type Diagnosis Age At Onset No Information Payers Payer name Insurance type Covered alliance party ID Authoriza tion(s) No Information Social [...]
--- OUTSIDE RECORDS SUMMARY | 2025-04-11 13:48 | XMS_ITS | Referral Summary ---
Author Organization [facility] [address] Address [address] [place] [address] Care Team Providers Care Busser Name Role Phone Natasha Caldwell MD Primary Care Provider [phone] Allergies No known active allergies Medications aspirin [...] down for the next 30 min. 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
--- OUTSIDE RECORDS SUMMARY | 2025-04-11 13:48 | XMS_ITS | Clinical Summary ---
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
--- NOTE | 2025-04-11 14:04 | ECG_ITS ---
Test Date: 2025-04-11 14:16:42 Measurements Intervals [place] Rate: 69 P: 85 FL: 185 QRS: 66 QRSD: 89 T: 79 QT: 412 QTc: 444 Interpretive Statements SINUS RHYTHM POSSIBLE RIGHT VENTRICULAR CONDUCTION DELAY [RSR (QR) IN V1/V2] LEFT VENTRICULAR HYPERTROPHY AND ST-T CHANGE [VOLTAGE CRITERIA PLUS ST/T ABNORMALITY] No previous ECG available for comparison Electronically Signed On 04-12-2025 16:01:14 CDT by Demetrio Moulton M.D.
[2025-04-11 14:06] LABS: Hematocrit 46.4 % (37.0-47.0); Hemoglobin 15.1 g/dL (12.0-15.0); Immature Granulocyte Percent A 0.1 % (0-0.5); Lymphocytes Absolute Auto 1.45 K/mm3 (0.9-3.2); Mean Corpuscular HGB Conc 32.5 g/dl (32-36); Mean Corpuscular Hemoglobin 30.3 pg (26-34); Mean Corpuscular Volume 93.0 fl (80-100); Nucleated Red Blood Cells Absolute Auto 0.000 K/mm3 (0.0-0.012); Nucleated Red Blood Cells Perc 0.0 % (0.0-0.2); Platelet Count Result 199 k/mm3 (150-375); Red Blood Count 4.99 M/mm3 (4.2-5.4); White Blood Count 7.2 K/mm3 (4.5-10.0)
[2025-04-11 14:27] LABS: Alanine Aminotransferase 23 U/L (6-35); Albumin Level 4.6 g/dL (3.5-5.1); Alkaline Phosphatase 96 U/L (38-126); Anion Gap 7 mmol/L (4-12); Aspartate Amino Transferase 33 U/L (14-36); Bilirubin,Total 1.4 mg/dL (0.2-1.3); Blood Urea Nitrogen 17 mg/dL (7-17); Calcium 10.3 mg/dL (8.4-10.2); Carbon Dioxide 29 mmol/L (22-30); Chloride 104 mmol/L (98-107); Estimated Glomerular Filt Rate 49; Glucose 91 mg/dL (65-110); Potassium 4.4 mmol/L (3.4-5.0); Sodium 140 mmol/L (137-145); Total Protein 7.8 g/dL (6.3-8.2)
[2025-04-11 14:57] LABS: Thyroid Stimulating Hormone Reflex 1.470 uIU/mL (0.465-4.68)
== END 2025-04-11 13:38 | disposition home or self-care (01) ==
PROVIDERS: PCP Family Medicine; Visit Provider Family Medicine
DX: R94.31 Abnormal electrocardiogram [ECG] [EKG] (principal); E03.9 Hypothyroidism, unspecified; E11.9 Type 2 diabetes mellitus without complications
CPT/HCPCS: 36415; 71046; 80053; 84443; 85025; 85380; 93005